=== PATIENT | female | born 1995 | race Caucasian/White ===

== ENCOUNTER 2017-01-19 19:05 | Emergency (ER) | payer BC ==
[2017-01-19 19:16] VITALS: BP 127/83; BMI 34.3
--- NOTE | 2017-01-19 19:51 | DR.GENAD ---
HPI - HPI Comment HPI Comment: SEVERAL FAMILY MEMBERS WITH SAME SYMTOMS. NO FEVER. NO DYSURIA. - Complaint/Symptoms Chief Complaint Doctors Comments: GENERALIZE ABDOMINAL PAIN TIMES SEVERAL HOURS WITH NAUSEA AND VOMITING. Chief Complaint:: STOMACH PAIN Self Treatment fo Chief Complaint: PHENERGAN TOPICAL CREAM - Nurses notes reviewed Nurses Notes Review: Yes - Source History Provided: Parent - Mode of Arrival Mode of Arrival: Ambulatory - Timing Onset of Chief Complaint: 01/19/17 Came on: Suddenly - Duration Duration: Constant Duration: Hours - Severity Severity: Moderate PMH - PMH Past Medical History: No Past Surgical History: No Surgical History: Ortho Surgery - Family History History of Family Medical Conditions: No Family Medical History: Diabetes Mellitus, Cancer, Hypertension - Social History Does any household member use tobacco: No Alcohol Use: None Do you use any recreational Drugs:: No Lives With: Family Lives Where: Home - infectious screening In the last 2 months have you had wt loss of >10#?: NO Have you had fever, night sweats or hemotysis?: No Have you traveled outside the country in the last 6 months?: No Isolation: Standard ROS - Review of Systems Constitutional: Weakness, Fatigue. negative: Chills, Fever Eyes: No Symptoms Reported ENTM: No Symptoms Reported Respiratoy: No Symptoms Reported Cardiovascular: No Symptoms Reported Gastrointestinal/Abdominal: Abdominal Pain, Nausea, Vomiting Genitourinary: No Symptoms Reported. negative: Dysuria, Frequency, Hematuria Neurological: Weakness. negative: Headache, Dizziness Musculoskeletal: Muscle Pain Integumentary: No Symptoms Reported Hematologic/Lymphatic: No Symptoms Reported Endocrine: No Symptoms Reported All Other Systems: Reviewed and Negative PE - Vital Signs Vitals: Temperature 97.8 F Pulse Rate 128 Respiratory Rate 18 Blood Pressure 127/83 O2 Sat by Pulse Oximetry 99 - General Limitations: No Limitations General Appearance: Alert - Head Head Exam: Normal Inspection - Eyes Eye exam: Normal Appearance - ENT ENT Exam: Normal External Ear Exam External Ear Exam: Normal External Inspection TM/Canal Exam: Bilateral Normal Nose Exam: Normal Nose Exam Mouth Exam: Normal Inspection Throat Exam: Normal Inspection - Neck Neck Exam: Trachea Midline - Chest Chest Inspection: Symmetric Chest Wall Rise - Respiratory Respiratory Exam: Normal Lung Sounds Bilat Respiratory Exam: Bilateral Clear to Auscultation - Cardiovascular Cardiovascular Exam: Regular Rate, Normal Rhythm, Normal Heart Sounds - Abdominal Exam Abdominal Exam: Normal Bowel Sounds, Soft. negative: Tenderness - Extremities Extremities Exam: Normal Inspection - Back Back Exam: Normal Inspection - Neurologic Neurological Exam: Alert, Oriented X3 - Psychiatric Psychiatric Exam: Normal Affect, Normal Mood - Skin Skin Exam: Normal Color MDM - Additional Information Additional Information Obtained From: Family - Differential Diagnosis Differential Diagnosis: ABDOMINAL PAIN, GASTROENTERITIS, DEHYDRATION Course - Treatment Treatment: SEE ORDERS. - Reevaluation 1st: Improved (IMPROVE WITH IV FLUID AND MEDS) - Education/Counseling Education/Counseling: Patient, Family, Education Educated On: Treatment, Diagnosis, Needs for Follow Up ROR - Labs Reviewed Laboratory Results Reviewed?: Yes Result Diagrams: 01/19/17 20:00 01/19/17 20:00 Laboratory: WBC 11.9 X10^3/uL (3.6-10.0) H 01/19/17 20:00 RBC 5.27 X10^6/uL (3.5-5.4) 01/19/17 20:00 Hgb 14.6 g/dL (12.0-16.0) 01/19/17 20:00 Hct 43.7 % (36.0-47.0) 01/19/17 20:00 MCV 82.9 fL (80.0-100.0) 01/19/17 20:00 MCH 27.7 pg (27.0-34.0) 01/19/17 20:00 MCHC 33.4 g/dL (33.0-35.0) 01/19/17 20:00 RDW 12.5 % (11.6-16.5) 01/19/17 20:00 Plt Count 270 X10^3/uL (150.0-450.0) 01/19/17 20:00 MPV 9.0 fL (7.4-11.0) 01/19/17 20:00 Neut % 89.5 % (42.0-75.0) H 01/19/17 20:00 Lymph % 5.7 % (21.0-51.0) L 01/19/17 20:00 [place] % 4.2 % (0.0-13.0) 01/19/17 20:00 Eos % 0.3 % (0.9-2.9) L 01/19/17 20:00 Baso % 0.3 % (0.2-1.0) 01/19/17 20:00 Neut # 10.7 x10^3/uL (2.2-4.8) H 01/19/17 20:00 Lymph # 0.7 X10^3/uL (1.3-2.9) L 01/19/17 20:00 [place] # 0.5 x10^3/uL (0.3-0.8) 01/19/17 20:00 Eos # 0.0 x10^3/uL (0.0-0.2) 01/19/17 20:00 Baso # 0.0 X10^3/uL (0.0-0.1) 01/19/17 20:00 Absolute Nucleated RBC 0.0 /100WBC 01/19/17 20:00 Sodium 143 mmol/L (136-145) 01/19/17 20:00 Corrected Sodium 144 mmol/L (136-145) 01/19/17 20:00 Potassium 3.9 mmol/L (3.5-5.1) 01/19/17 20:00 Chloride 106 mmol/L (98-107) 01/19/17 20:00 Carbon Dioxide 25.1 mmol/L (21-32) 01/19/17 20:00 BUN 13 mg/dL (7-18) 01/19/17 20:00 Creatinine 1.02 mg/dL (0.55-1.02) 01/19/17 20:00 Est GFR (MDRD) Af Amer > 60 (>60) 01/19/17 20:00 Est GFR (MDRD) Non-Af > 60 (>60) 01/19/17 20:00 Glucose 129 mg/dL (65-99) H 01/19/17 20:00 Calcium 8.8 mg/dL (8.5-10.1) 01/19/17 20:00 Corrected Calcium TNP 01/19/17 20:00 Total Bilirubin 0.50 mg/dL (0.2-1.0) 01/19/17 20:00 AST 18 Units/L (15-37) 01/19/17 20:00 ALT 30 Units/L (12-78) 01/19/17 20:00 Alkaline Phosphatase 73 Units/L (46-116) 01/19/17 20:00 Total Protein 8.2 g/dL (6.4-8.2) 01/19/17 20:00 Albumin 4.0 g/dL (3.4-5.0) 01/19/17 20:00 Globulin 4.2 g/dL (2.5-4.5) 01/19/17 20:00 Albumin/Globulin Ratio 1.0 Ratio (1.1-2.1) L 01/19/17 20:00 Amylase 25 Units/L (25-115) 01/19/17 20:00 Lipase 77 Units/L (73-393) 01/19/17 20:00 Specimen Type Clean catch urine 01/19/17 21:35 Urine Color Yellow (YELLOW) 01/19/17 21:35 Urine Appearance Slightly hazy (CLEAR) 01/19/17 21:35 Urine pH 5.0 (5.0 - 8.0) 01/19/17 21:35 Ur Specific [place] 1.025 (1.000-1.030) 01/19/17 21:35 Urine Protein 1+ (NEGATIVE) 01/19/17 21:35 Urine Glucose (UA) Negative (NEGATIVE) 01/19/17 21:35 Urine Ketones 1+ (NEGATIVE) 01/19/17 21:35 Urine Occult Blood 1+ (NEGATIVE) 01/19/17 21:35 Urine Nitrite Negative (NEGATIVE) 01/19/17 21:35 Urine Bilirubin Negative (NEGATIVE) 01/19/17 21:35 Urine Urobilinogen Normal (NORMAL) 01/19/17 21:35 Ur Leukocyte Esterase Negative (NEGATIVE) 01/19/17 21:35 Urine RBC 0-3 /HPF (NEGATIVE) 01/19/17 21:35 Urine WBC 0-3 /HPF (NEGATIVE) 01/19/17 21:35 Ur Squamous Epith Cells Few /HPF (NEGATIVE) 01/19/17 21:35 Urine Bacteria Negative /HPF (NEGATIVE) 01/19/17 21:35 Urine Mucus Few /HPF (NEGATIVE) 01/19/17 21:35 Ur Culture Indicated? No/not indicated 01/19/17 21:35 - XRAY XRAY Interpreted by: Radiologist XRAY Findings: REPORT DISCUSS WITH PATIENT. - Diagnosis Discharge Problem: Dehydration, Gastroenteritis, Abdominal pain - Discharge Plan Disposition: 01 HOME, SELF-CARE Condition: Stable Prescriptions: Dicyclomine HCl [Bentyl tab 20 mg] 20 mg PO TID PRN #15 tab PRN Reason: Diphenoxylate W/ Atropine [Lomotil] 1 tab PO TID PRN #15 tab PRN Reason: Ondansetron HCl [Zofran Tab 4 mg] 4 mg PO Q8H PRN #12 tab PRN Reason: Nausea/Vomiting - Follow ups/Referrals Follow ups/Referrals: Carlton Rubin [Primary Care Provider] - 3 days - Instructions Instructions: Dehydration, Adult, [id number], Abdominal Pain, Adult, Easy-to- Read, Viral Gastroenteritis, Adult, [id number] Additional Instructions: RETURN TO ED IF WORSE.
[2017-01-19] MEDS ORDERED: ZOFRAN INJ 4 MG VIAL IVP ONE (19:53)
[2017-01-19] MEDS ORDERED: NS 1000 ML 1,000 ML IV ONE (19:53)
[2017-01-19 20:10] LABS: BASOPHILS % (AUTO) 0.3 % (0.2-1.0); EOSINOPHILS % (AUTO) 0.3 % (0.9-2.9); HEMATOCRIT 43.7 % (36.0-47.0); HEMOGLOBIN 14.6 g/dL (12.0-16.0); LYMPHOCYTES # (AUTO) 0.7 X10^3/uL (1.3-2.9); LYMPHOCYTES % (AUTO) 5.7 % (21.0-51.0); MEAN CORPUSCULAR HEMOGLOBIN 27.7 pg (27.0-34.0); MEAN CORPUSCULAR HGB CONC 33.4 g/dL (33.0-35.0); MEAN CORPUSCULAR VOLUME 82.9 fL (80.0-100.0); MONOCYTES # (AUTO) 0.5 x10^3/uL (0.3-0.8); MONOCYTES % (AUTO) 4.2 % (0.0-13.0); NEUTROPHILS # (AUTO) 10.7 x10^3/uL (2.2-4.8); NEUTROPHILS % (AUTO) 89.5 % (42.0-75.0); PLATELET COUNT 270 X10^3/uL (150.0-450.0); RED BLOOD COUNT 5.27 X10^6/uL (3.5-5.4); RED CELL DISTRIBUTION WIDTH 12.5 % (11.6-16.5); WHITE BLOOD COUNT 11.9 X10^3/uL (3.6-10.0)
[2017-01-19] MEDS ORDERED: NS 1000 ML 1,000 ML ONE (20:11)
[2017-01-19] MEDS ORDERED: ZOFRAN INJ 4 MG VIAL ONE (20:12)
[2017-01-19 20:23] LABS: ALANINE AMINOTRANSFERASE 30 Units/L (12-78); ALKALINE PHOSPHATASE 73 Units/L (46-116); AMYLASE 25 Units/L (25-115); ASPARTATE AMINO TRANSFERASE 18 Units/L (15-37); BLOOD UREA NITROGEN 13 mg/dL (7-18); CALCIUM 8.8 mg/dL (8.5-10.1); CARBON DIOXIDE 25.1 mmol/L (21-32); CHLORIDE 106 mmol/L (98-107); COR NA(FOR HYPERGLY) 144 mmol/L (136-145); CREATININE 1.02 mg/dL (0.55-1.02); GLUCOSE 129 mg/dL (65-99); LIPASE 77 Units/L (73-393); SODIUM 143 mmol/L (136-145); TOTAL PROTEIN 8.2 g/dL (6.4-8.2); eGFR BLACK RACES > 60 (>60); eGFR NON BLACK RACES > 60 (>60)
--- NOTE | 2017-01-19 21:30 | RAD ---
HISTORY: Abdominal pain with nausea, vomiting, and diarrhea Study: Acute abdominal series Technique: A single view of the chest and three views of the abdomen are submitted for interpretatio n. Comparison: None Findings: The trachea is midline. The cardiac silhouette is unremarkable. The lungs are clear without focal infiltrate or effusion. . Flat plate and upright evaluation of the abdomen demonstrates a nonspecific bowel gas pattern. Scat tered stool and gas are seen within the colon. The renal shadows are partially obscured by overlying bowel content. IMPRESSION: 1. No acute cardiopulmonary disease. 2. Nonspecific bowel gas pattern. Reported By:
[2017-01-19] MEDS ORDERED: BENTYL CAP 10 MG PO ONE ×2 (21:44→21:46)
[2017-01-19 22:05] LABS: BILIRUBIN,URINE NEGATIVE (NEGATIVE); BLOOD/HEMOGLOBIN,URINE 1+ (NEGATIVE); GLUCOSE, URINE NEGATIVE (NEGATIVE); KETONES,URINE 1+ (NEGATIVE); LEUKOCYTE ESTERASE ,URINE NEGATIVE (NEGATIVE); NITRITES,URINE NEGATIVE (NEGATIVE); PROTEIN,URINE 1+ (NEGATIVE); UROBILINOGEN,URINE NORMAL (NORMAL)
[2017-01-19 22:17] LABS: APPEARANCE,URINE SLIGHTLY HAZY (CLEAR); BACTERIA,URINE NEGATIVE /HPF (NEGATIVE); COLOR,URINE YELLOW (YELLOW); MUCUS,URINE FEW /HPF (NEGATIVE); RBC,URINE 0-3 /HPF (NEGATIVE); SQUAMOUS EPITHELIAL CELL,UR FEW /HPF (NEGATIVE)
== END 2017-01-19 22:37 | disposition home or self-care (01) ==
LOC: ER 19:05
DX: K52.89 Other specified noninfective gastroenteritis and colitis (principal); E86.0 Dehydration; R10.84 Generalized abdominal pain; R14.3 Flatulence
CPT/HCPCS: 36415; 74022; 80053; 81001; 82150; 83690; 85025; 96365; 96374; 99283; A4222; J2405